=== PATIENT | female | born 1995 | race Caucasian/White ===

== ENCOUNTER 2024-11-06 22:03 | Emergency (ER) | payer OTHER ==
[~2024-11-06] VITALS: Ht 149.9 cm; Wt 78.1 kg
[2024-11-07 02:23] LABS: BASO # 0.1 10^3/uL (0.0-0.2); BASO % 0.5 % (0.0-1.0); EOS # 0.2 10^3/uL (0.0-0.5); EOS % 1.3 % (0.0-3.0); HEMATOCRIT 31.3 % (36.0-47.0); HEMOGLOBIN 10.9 g/dl (12.0-15.5); LYMPH # 2.8 10^3/uL (1.5-5.0); LYMPH % 17.1 % (24.0-44.0); MEAN CORPUSCULAR HEMOGLOBIN 29.8 pg (27.0-33.0); MEAN CORPUSCULAR HGB CONC 34.8 g/dl (32.0-36.5); MEAN CORPUSCULAR VOLUME 85.5 fl (80.0-96.0); MONO # 1.2 10^3/uL (0.0-0.8); MONO % 7.5 % (2.0-8.0); NEUTROPHILS # 11.5 10^3/uL (1.5-8.5); NEUTROPHILS % 71.1 % (36.0-66.0); PLATELET COUNT, AUTOMATED 288 10^3/uL (150-450); RED BLOOD COUNT 3.66 10^6/uL (4.00-5.40); WHITE BLOOD COUNT 16.2 10^3/uL (4.0-10.0)
[2024-11-07 02:46] LABS: BLOOD UREA NITROGEN 9 MG/DL (9-23); CALCIUM LEVEL 9.1 MG/DL (8.5-10.1); CARBON DIOXIDE LEVEL 23 MMOL/L (20-31); CHLORIDE LEVEL 106 MMOL/L (98-107); CREATININE FOR GFR 0.45 MG/DL (0.55-1.30); GLOMERULAR FILTRATION RATE > 60.0 (>60); GLUCOSE, FASTING 86 MG/DL (60-100); POTASSIUM SERUM 4.2 MMOL/L (3.5-5.1); SODIUM LEVEL 140 MMOL/L (136-145)
[2024-11-07 07:58] VITALS: BP 126/76; TEMP 97.6; O2SAT 96
== END 2024-11-07 08:08 | disposition home or self-care (01) ==
LOC: M ED 22:03
DX: Z04.89 Encounter for examination and observation for other specified reasons (principal); W19.XXXA Unspecified fall, initial encounter; Y92.009 Unspecified place in unspecified non-institutional (private) residence as the place of occurrence of the external cause; Y93.89 Activity, other specified; Y99.9 Unspecified external cause status

== ENCOUNTER → 2025-01-07 | Outpatient (CLI) | payer OTHER ==
[2025-01-07 13:32] LABS: HEMATOCRIT 36.3 % (36.0-47.0); MEAN CORPUSCULAR HEMOGLOBIN 29.4 pg (27.0-33.0); MEAN CORPUSCULAR HGB CONC 33.1 g/dl (32.0-36.5); PLATELET COUNT, AUTOMATED 326 10^3/uL (150-450); RED BLOOD COUNT 4.08 10^6/uL (4.00-5.40); WHITE BLOOD COUNT 13.4 10^3/uL (4.0-10.0)
[2025-01-07 14:40] LABS: HIV 1&2 SCREEN NEGATIVE (NEGATIVE)
[2025-01-07 14:48] LABS: HEPATITIS C VIRUS ABY INDEX 0.03 INDEX (<0.8)
[2025-01-07 14:53] LABS: Trichomonas vaginalis (AMP) NOT DETECTED (NEGATIVE)
[2025-01-07 15:17] LABS: GC DNA AMPLIFICATION NEGATIVE (NEGATIVE)
== END ==
LOC: M PLALAB 09:53
PROVIDERS: ATTEND Advanced Practice Midwife
DX: Z34.02 Encounter for supervision of normal first pregnancy, second trimester (principal)

== ENCOUNTER → 2025-01-10 | Outpatient (CLI) | payer OTHER | LOC: M LAB 07:16 | PROVIDERS: ATTEND Advanced Practice Midwife | DX: O99.810 Abnormal glucose complicating pregnancy (principal) ==

== ENCOUNTER → 2025-03-19 | Outpatient (REF) | payer OTHER ==
[~2025-03-19] MED LIST: ASPI81CH33 PO; FAMO20TA PO; FLON1SPR NARES; OMEP40CA4 PO; PRENTAB9 PO; VITA1TAB82 PO
== END ==
LOC: M PLALAB 10:49
PROVIDERS: ATTEND Nurse Practitioner Family
DX: Z36.85 Encounter for antenatal screening for Streptococcus B (principal); Z3A.36 36 weeks gestation of pregnancy

== ENCOUNTER 2025-04-02 12:07 | Inpatient (IN) | payer OTHER ==
[2025-04-02] VITALS (26 sets, daily range): BP systolic 99–191; BP diastolic 52–104
[~2025-04-02] VITALS: Ht 149.9 cm; Wt 105.8 kg
[2025-04-02] MEDS ORDERED: ONDA4SOL PO (12:36)
[2025-04-02 13:20] LABS: PLATELET COUNT, AUTOMATED 277 10^3/uL (150-450)
[2025-04-02 13:43] LABS: LDH LACTATE DEHYDROGENASE 211 U/L (120-246)
[2025-04-02 13:44] LABS: ALT/SGPT 18 U/L (7.0-40); AST/SGOT 25 U/L (<34); CREATININE FOR GFR 0.55 MG/DL (0.55-1.30); GLOMERULAR FILTRATION RATE > 90.0 (>60)
[2025-04-02 13:51] LABS: TOTAL PROTEIN,RANDOM URINE 26.6 MG/DL (0.0-14.0)
[2025-04-02 14:12] LABS: HIV 1&2 SCREEN NEGATIVE (NEGATIVE)
[2025-04-02] MEDS ORDERED: TRANEXAMIC ACID INJection 1,000 MG in NS 100 ML IV PRN (14:15)
[2025-04-02] MEDS ORDERED: LIDOCAINE 1% MDV 20 ML VIAL INFIL PRN (14:15)
[2025-04-02] MEDS ORDERED: OXYTOCIN INJ 10UNITS/ML 1ML VIAL IM PRN (14:15)
[2025-04-02] MEDS ORDERED: CARBOPROST TROMETHAMINE 250 MCG/ML AMP IM PRN (14:15)
[2025-04-02] MEDS ORDERED: OXYTOCIN DRIP 30 UNITS in IV 1 EA IV PRN (14:15)
[2025-04-02 14:24] LABS: HEPATITIS C VIRUS ABY INDEX < 0.02 INDEX (<0.8)
[2025-04-02] MEDS ORDERED: ONDA-282 PO (14:35)
[2025-04-02] MEDS: miSOPROStol 50 MCG 1/2 TABLET PO SCH (15:07)
[2025-04-02] MEDS: LR 500 ML IV ONE (19:38)
[2025-04-02] MEDS ORDERED: EPIDURAL/PCA KEYS XX PRN (20:05)
[2025-04-02] MEDS ORDERED: NALOXONE INJ 0.4 MG/1 ML VIAL IV PRN ×3 (20:05→23:30)
[2025-04-02] MEDS: FENTANYL/ROPIVACAINE/NACL BAG 100 ML EPIDURAL SCH (20:05)
[2025-04-02] MEDS: ONDANSETRON 4MG 2ML VIAL IV PRN (20:51)
[2025-04-02] MEDS: LR 500 ML IV PRN (21:21)
[2025-04-02] MEDS ORDERED: LIDOCAINE 2% W/EPINEPHrine 20 ML VIAL **PRES FREE As Ordered ONE (21:39)
[2025-04-02] MEDS ORDERED: ONDANSETRON 4MG 2ML VIAL As Ordered ONE (21:39)
[2025-04-02] MEDS ORDERED: KETOROLAC 30 MG/ML 1 ML VIAL As Ordered ONE (21:43)
[2025-04-02] MEDS: AZITHROMYCIN INJ 500 MG, VIAL MATE ADAPTER 1 EACH in NS 250 ML IV ONE (21:44)
[2025-04-02] MEDS: BICITRA 30 ML SOLN UDC PO ONE (21:44)
[2025-04-02] MEDS: ceFAZolin SODIUM 2 GM in DEXTROSE 5% (D5W) ADV/MINI-BAG 50 ML IV ONE (22:20)
[2025-04-02] MEDS ORDERED: dexAMETHasone 4 MG/ML 1 ML VIAL As Ordered ONE (22:28)
[2025-04-02] MEDS ORDERED: ACETAMINOPHEN 1000MG/100ML IV BAG As Ordered ONE (22:29)
[2025-04-02] MEDS ORDERED: MORPHINE PRES-FREE INJ 10 MG/10 ML VIAL As Ordered ONE (22:29)
[2025-04-02 22:49] LABS: CORD GAS ABE V -5.1; CORD GAS HCO3 V 22.5 MMOL/L; CORD GAS O2 SAT V 48.5 %; CORD GAS PCO2 V 51.1 mmHg; CORD GAS PH V 7.261 UNITS; CORD GAS PO2 V 22.3 mmHg; CORD GAS SBC V 19.1 MMOL/L; CORD GAS TCO2 V 24.0 MMOL/L
[2025-04-02] MEDS ORDERED: OXYTOCIN 30UNITS IN 0.9% NaCl 500ML IV BAG As Ordered ONE (22:49)
[2025-04-02 22:54] LABS: CORD GAS ABE A -8.1; CORD GAS HCO3 A 20.4 MMOL/L; CORD GAS O2 SAT A 15.3 %; CORD GAS PCO2 A 53.7 mmHg; CORD GAS PH A 7.197 UNITS; CORD GAS PO2 A 11.9 mmHg; CORD GAS SBC A 16.3 MMOL/L; CORD GAS TCO2 A 22.0 MMOL/L
[2025-04-02] MEDS: LR 1,000 ML IV SCH ×2 (23:15→23:30)
[2025-04-02] MEDS ORDERED: CALCIUM CARBONATE 500 MG CHEW U/D PO PRN (23:15)
[2025-04-02] MEDS ORDERED: RHOGAM 300MCG (1500IU) INJ IM SCH (23:15)
[2025-04-02] MEDS ORDERED: MORPHINE 4 MG/ML 1 ML VIAL IV PRN (23:15)
[2025-04-02] MEDS ORDERED: ANUSOL HC CREAM 30 GM TOP PRN (23:15)
[2025-04-02] MEDS ORDERED: ONDANSETRON 4MG 2ML VIAL IV PRN ×2 (23:15→23:30)
[2025-04-02] MEDS ORDERED: METHYLERGONOVINE MALEATE 0.2 MG/ML 1 ML VIAL IM PRN (23:15)
[2025-04-02] MEDS: OXYTOCIN DRIP 30 UNITS in IV 1 EA IV SCH (23:15)
[2025-04-02] MEDS ORDERED: PERCOCET 5MG/325MG TAB PO PRN (23:15)
[2025-04-02] MEDS ORDERED: COLA100C5 PO (23:25)
[2025-04-02] MEDS ORDERED: IBUP80TA PO (23:25)
[2025-04-02] MEDS ORDERED: PERCOCET PO (23:25)
[2025-04-02] MEDS ORDERED: **NOTE PATIENT COMMENT** MISC XX SCH (23:30)
[2025-04-02] MEDS: SLF 3 ML SYR IV SCH (23:30)
[2025-04-02] MEDS ORDERED: diphenhydrAMINE 50 MG/ML VIAL IV PRN (23:30)
[2025-04-03] VITALS (10 sets, daily range): BP systolic 121–144; BP diastolic 63–89; TEMP 98.1; O2SAT 96–100
[2025-04-03] MEDS ORDERED: UNRESOLVED CLARIFICATION ENTRY XX SCH (00:01)
[2025-04-03] MEDS: diphenhydrAMINE 50 MG/ML VIAL IV PRN (03:56)
[2025-04-03] MEDS: KETOROLAC 30 MG/ML 1 ML VIAL IV SCH (03:56)
[2025-04-03] MEDS: ENOXAPARIN 40 MG/0.4 ML SYRINGE (J1650 PER 10MG) SC SCH (06:22)
[2025-04-03 07:25] LABS: PLATELET COUNT, AUTOMATED 241 10^3/uL (150-450)
[2025-04-03] MEDS: PRENATAL VITAMINS CHEWABLE TABLET PO SCH (08:37)
[2025-04-03] MEDS: SIMETHICONE 80MG CHEW TAB PO PRN (08:37)
[2025-04-03] MEDS: FERROUS SULFATE 325 MG TAB PO SCH (08:37)
[2025-04-03] MEDS: DOCUSATE SODIUM 100 MG CAPSULE PO SCH (08:37)
[2025-04-04] VITALS (7 sets, daily range): BP systolic 123–175; BP diastolic 70–86; O2SAT 98–100
[2025-04-04] MEDS: IBUPROFEN 800 MG TAB PO SCH
[2025-04-04] MEDS: PERCOCET 5MG/325MG TAB PO PRN (02:01)
[2025-04-04] MEDS ORDERED: MEASLES,MUMPS,RUBELLA VACCINE INJ (MMR-II) SC.IMMUN ONE (09:00)
[2025-04-04] MEDS: ACETAMINOPHEN 500 MG TAB PO PRN (22:55)
[2025-04-05] VITALS: BP 152/84
[2025-04-05 05:54] VITALS: BP 139/86; O2SAT 99
[2025-04-05] MEDS ORDERED: MEASLES,MUMPS,RUBELLA VACCINE INJ (MMR-II) SC.IMMUN ONE (09:00)
== END 2025-04-05 14:20 | disposition home or self-care (01) | DRG 773 ==
LOC: M LDO 12:07 → M LDI 14:11 → M OBS 04-03 01:24
PROVIDERS: ADMIT Advanced Practice Midwife; ATTEND Obstetrics & Gynecology
PROC: 10D00Z1 Extraction of Products of Conception, Low, Open Approach (ICD-10-PCS; principal; 2025-04-02)
PROC: 3E0P7GC Introduction of Other Therapeutic Substance into Female Reproductive, Via Natural or Artificial Opening (ICD-10-PCS; 2025-04-02)
DX: O14.94 Unspecified pre-eclampsia, complicating childbirth (principal); Z3A.38 38 weeks gestation of pregnancy; O76 Abnormality in fetal heart rate and rhythm complicating labor and delivery; Z37.0 Single live birth